=== PATIENT | female | born 1990 | race Hispanic/Latino ===

== ENCOUNTER 2021-09-21 03:12 | Emergency (ER) | payer BC | END 2021-09-21 04:11 | disposition home or self-care (01) | LOC: ERS 03:12 | DX: H57.02 Anisocoria (principal) ==

== ENCOUNTER 2021-09-21 12:08 | Emergency (ER) | payer BC ==
[2021-09-21] MEDS ORDERED: Fluorescein Opthalmic Strip ONE (13:35)
[2021-09-21] MEDS ORDERED: Lorazepam 1 MG TAB ONE (15:43)
== END 2021-09-21 15:59 | disposition home or self-care (01) ==
LOC: ERS 12:08
DX: H57.02 Anisocoria (principal); Z79.84 Long term (current) use of oral hypoglycemic drugs
CPT/HCPCS: 99284